=== PATIENT | female | born 1955 | race Caucasian/White ===

== ENCOUNTER 2023-03-12 17:06 | Emergency (ER) | payer MEDICARE, OTHER, SELFPAY ==
[2023-03-12 17:27] VITALS: BP 155/88; PULSE 82; RESP 16; TEMP 36.6; O2SAT 99
--- NOTE | 2023-03-12 17:52 | ED.WOUNDLAC ---
HPI - Wound/Laceration General Chief Complaint: Wound/Laceration Stated Complaint: left finger injury Source: patient Mode of arrival: ambulatory Limitations: no limitations History of Present Illness HPI narrative: 67-year-old female presented for complaint of laceration to the left little finger about 1 hour prior to arrival. She states she was cutting dumplings with a knife when the knife slipped and cut the finger. Denies decreased ROM, numbness, tingling or weakness. Bleeding small amount at this time. Unsure of tetanus. Pt is visiting from [place]. Related Data Home Medications Medication Instructions Recorded Confirmed alprazolam 0.5 mg tablet 0.5 mg PO PRN PRN Anxiety 03/12/23 03/12/23 empagliflozin 25 mg tablet 25 mg PO DAILY 03/12/23 03/12/23 (Jardiance) estradiol 0.01% (0.1 mg/gram) 1 applic vaginal DAILY 03/12/23 03/12/23 vaginal cream hydrochlorothiazide 25 mg tablet 25 mg PO DAILY 03/12/23 03/12/23 omeprazole 40 mg capsule,delayed 40 mg PO DAILY 03/12/23 03/12/23 release paroxetine HCl 40 mg tablet 40 mg PO POST-TRANSFUSION 03/12/23 03/12/23 propranolol 80 mg capsule,24 80 mg PO DAILY 03/12/23 03/12/23 hr,extended release rosuvastatin 20 mg tablet 20 mg PO HS 03/12/23 03/12/23 Allergies Allergy/AdvReac Type Severity Reaction Status Date / Time Penicillins Allergy Hives Verified 03/12/23 17:38 Sulfa (Sulfonamide Allergy Hives Verified 03/12/23 17:38 Antibiotics) Review of Systems Review of Systems: CONSTITUTIONAL: Denies body aches, fever, chills, or sweats. EYES: Denies visual changes, redness, or discharge. ENT: Denies rhinorrhea, congestion CARDIOVASCULAR: Denies chest pain, palpitations, or edema. RESPIRATORY: Denies cough or dyspnea. GASTROINTESTINAL: Denies abdominal pain, nausea, vomiting, or diarrhea. SKIN: laceration left little finger MUSCULOSKELETAL: Denies back pain, joint pain, or myalgia. NEUROLOGIC: Denies headache, numbness, tingling, or weakness. [facility] Past Medical History Medical History (Updated 03/12/23 @ 18:06 by Michelle Castaneda, [employer]) HTN (hypertension) Comments At time of signature, I have reviewed and agree with nursing past medical, surgical, social and family history unless otherwise noted. Please see nursing chart for further information. There is no relevant family history pertinent to the presenting complaint Exam Narrative: GENERAL: Well-appearing HEAD: Normocephalic, atraumatic. EYES: conjunctivae clear, and EOMI. ENT: Mucous membranes moist. Oropharynx without edema, erythema or lesions. NECK: Supple. No lymphadenopathy CHEST: Clear to auscultation. HEART: Regular rate and rhythm. SKIN: Warm, dry. 1.5cm linear laceration to 5th digit DIP, minimal bleeding; full ROM. CMS intact NEURO: Alert and oriented x3. Course Course Emergency Course: Patient is aware of diagnosis, understands and agrees to treatment plan. Anticipatory guidance given. Patient agrees to follow-up as directed and is aware of reasons to seek care at the emergency department. Portions of this record may have been created with voice recognition software Level of Care: Express Care Visit Vital Signs Vital signs: Vital Signs Temperature 97.8 F 03/12/23 17:27 Pulse Rate 82 03/12/23 17:27 Respiratory Rate 16 03/12/23 17:27 Blood Pressure 155/88 H 03/12/23 17:27 Pulse Oximetry 99 03/12/23 17:27 Oxygen Delivery Room Air 03/12/23 17:27 Temperature 97.8 F 03/12/23 17:27 Pulse Rate 82 03/12/23 17:27 Respiratory Rate 16 03/12/23 17:27 Blood Pressure 155/88 H 03/12/23 17:27 Pulse Oximetry 99 03/12/23 17:27 Oxygen Delivery Room Air 03/12/23 17:27 Reviewed Procedures Laceration left 5th digit: Date: 03/12/23 Size (cm): 1.5 Description: linear and clean Depth: simple, single layer Local Anesthetic: lidocaine 1% Amount of anesthesia used (mL): 1.5 Pre-repair: wo
[2023-03-12] MEDS: TETANUS,DIPHTHERIA,AC PERTUSSIS ADULT (0.5 ML) BOOSTRIX IM (17:56)
== END 2023-03-12 18:20 | disposition home or self-care (01) ==
PROVIDERS: Emergency Provider Nurse Practitioner Family
DX: S61.217A Laceration without foreign body of left little finger without damage to nail, initial encounter (principal); W26.0XXA Contact with knife, initial encounter; Y93.G1 Activity, food preparation and clean up; Z23 Encounter for immunization; I10 Essential (primary) hypertension
CPT/HCPCS: 12001; 90471; 90715; 99203; G0463